=== PATIENT | female | born 1980 | race American Indian/Alaskan Native ===

== ENCOUNTER 2017-01-20 12:15 | Emergency (ER) | payer MEDICAID ==
[2017-01-20 15:03] LABS: Bacteria,Urine 1+ /HPF (Negative); Bilirubin,Urine NEG (Negative); Blood,Urine SM (Negative); Ketones,Urine NEG (Negative); Leukocyte Esterase,Urine LG (Negative); Mucus,Urine FEW /HPF; Nitrite,Urine NEG (Negative); Protein,Urine <15 mg/dL mg/dL (Negative); Urobilinogen,Urine < 2.0 mg/dL (<2.0)
[2017-01-20 15:43] VITALS: BP 129/85
[2017-01-20] MEDS ORDERED: TORADOL IV ONE (16:20)
[2017-01-20] MEDS ORDERED: ZOFRAN IV ONE (16:20)
[2017-01-20] MEDS ORDERED: NACL 0.9% 1000 ML 1,000 ML IV ONE (16:20)
[2017-01-20 16:49] LABS: Basophils % (Auto) 0.8 % (0.0-1.8); Hematocrit 30.8 % (30.3-42.9); Hemoglobin 10.1 gm/dl (10.1-14.3); Mean Corpuscular HGB Conc 33 % (30-34); Mean Corpuscular Hemoglobin 28 pg (28-32); Mean Corpuscular Volume 84 fl (79-97); Platelet Count 389 K/mm3 (140-440); Red Blood Count 3.66 M/mm3 (3.65-5.03); Red Cell Distribution Width 15.9 % (13.2-15.2); White Blood Count 9.6 K/mm3 (4.5-11.0)
[2017-01-20 17:07] LABS: Alanine Aminotransferase 17 units/L (7-56); Albumin 3.8 g/dL (3.9-5); Albumin/Globulin Ratio 1.4 %; Alkaline Phosphatase 51 units/L (35-129); Anion Gap 18 mmol/L; BUN/Creatinine Ratio 13.33; Bilirubin,Total 0.6 mg/dL (0.1-1.2); Blood Urea Nitrogen 8 mg/dL (7-17); Calcium 8.5 mg/dL (8.4-10.2); Carbon Dioxide 23 mmol/L (22-30); Chloride 101.6 mmol/L (98-107); Glucose 70 mg/dL (65-100); Lipase 24 units/L (13-60); Potassium 3.9 mmol/L (3.6-5.0); Sodium 139 mmol/L (137-145); Total Protein 6.5 g/dL (6.3-8.2)
--- NOTE | 2017-01-20 17:10 | Emergency Department Report ---
ED General Adult HPI - General Chief complaint: Abdominal Pain Stated complaint: FATIGUE/HERNIA PAIN Time Seen by Provider: 01/20/17 16:10 Source: patient Mode of arrival: Ambulatory Limitations: No Limitations - History of Present Illness Initial comments: 36-year-old female presents to the emergency department complaining of abdominal pain. Patient states that she has had an umbilical hernia for approximately 3 years. She began having pain at this site last night. Pain was described as burning in sensation that radiated to her lower back. She states she was able to push the hernia back in, but the pain is persisting. She is also complaining of chest tightness for approximately one week. She states she is out of her asthma medications. She is also complaining of fatigue , lightheadedness, headache, and nausea. There are no other complaints. -: Gradual, Last night Location: abdomen Radiation: back Severity scale (0 -10): 4 Quality: burning Consistency: constant Improves with: none Worsens with: none - Related Data Previous Rx's Medication Instructions Recorded Last Taken Type ALBUTEROL Inhaler [ProAir HFA 2 puff IH QID PRN #1 inhalation 01/20/17 Unknown Rx Inhaler] HYDROcodone/APAP 5-325 [Burnett 1 each PO Q6HR PRN #20 tablet 01/20/17 Unknown Rx 5/325] Promethazine [Phenergan TAB] 25 mg PO Q6HR PRN #20 tab 01/20/17 Unknown Rx Allergies Allergy/AdvReac Type Severity Reaction Status Date / Time No Known Allergies Allergy Verified 01/20/17 16:10 ED Review of Systems ROS: Stated complaint: FATIGUE/HERNIA PAIN Other details as noted in HPI Comment: All other systems reviewed and negative Constitutional: other (fatigue) Cardiovascular: chest pain (tightness), syncope (lightheadedness, no loss of consciousness) Gastrointestinal: abdominal pain, nausea Neurological: headache ED Past Medical Hx - Past Medical History Previous Medical History?: Yes Hx Asthma: Yes - Surgical History Past Surgical History?: Yes Additional Surgical History: hernia repair. tubal ligation - Family History Family history: no significant - Social History Smoking Status: Never Smoker Substance Use Type: Alcohol - Medications Home Medications: Home Medications Medication Instructions Recorded Confirmed Last Taken Type ALBUTEROL Inhaler [ProAir HFA 2 puff IH QID PRN #1 inhalation 01/20/17 Unknown Rx Inhaler] HYDROcodone/APAP 5-325 [Burnett 1 each PO Q6HR PRN #20 tablet 01/20/17 Unknown Rx 5/325] Promethazine [Phenergan TAB] 25 mg PO Q6HR PRN #20 tab 01/20/17 Unknown Rx ED Physical Exam - General Limitations: No Limitations General appearance: alert, in no apparent distress - Head Head exam: Present: atraumatic, normocephalic - Eye Eye exam: Present: normal appearance, PERRL, EOMI - ENT ENT exam: Present: normal exam, normal orophraynx, mucous membranes moist - Neck Neck exam: Present: normal inspection, full ROM. Absent: tenderness - Respiratory Respiratory exam: Present: normal lung sounds bilaterally. Absent: respiratory distress - Cardiovascular Cardiovascular Exam: Present: regular rate, normal rhythm, normal heart sounds - GI/Abdominal GI/Abdominal exam: Present: soft, normal bowel sounds, hernia (ventral hernia noted, easily reducible. There is no umbilical hernia present.). Absent: distended, tenderness - Extremities Exam Extremities exam: Present: normal inspection, full ROM. Absent: tenderness - Back Exam Back exam: Present: normal inspection, full ROM. Absent: tenderness - Neurological Exam Neurological exam: Present: alert, oriented X3. Absent: motor sensory deficit - Skin Skin exam: Present: warm, dry, intact ED Course Vital Signs 01/20/17 01/20/17 13:10 15:42 Temperature 97.9 F Pulse Rate 74 74 Respiratory 18 16 Rate Blood Pressure 128/90 Blood Pressure 129/85 [Left] O2 Sat by Pulse 100 100 Oximetry ED Medical Decision Making - Lab Data Result diagrams: 01/20/17 16:38 01/20/17 16:38 - Medical Decision Making Lab results reviewed and discussed with the patient. Patient reports her pain is improved with medication. Patient will be discharged home at this time with surgical referral. Also providing the patient with a prescription for her albuterol inhaler. - Differential Diagnosis ventral hernia, strangulated hernia, anemia, electrolyte abnormality Critical care attestation.: If time is entered above; I have spent that time in minutes in the direct care of this critically ill patient, excluding procedure time. ED Disposition Clinical Impression: Ventral hernia without obstruction or gangrene Disposition: DISCHARGED TO HOME OR SELFCARE Is pt being admited?: No Condition: Stable Instructions: Ventral Hernia (ED) Prescriptions: ALBUTEROL Inhaler [ProAir HFA Inhaler] 2 puff IH QID PRN #1 inhalation PRN Reason: Shortness Of Breath HYDROcodone/APAP 5-325 [Burnett 5/325] 1 each PO Q6HR PRN #20 tablet PRN Reason: Pain Promethazine [Phenergan TAB] 25 mg PO Q6HR PRN #20 tab PRN Reason: Nausea Referrals: AMRITA AYALA MD [Staff Physician] - 3-5 Days Time of Disposition: 17:17
[2017-01-20 17:14] LABS: Bilirubin,Direct < 0.2 mg/dL (0-0.2); Bilirubin,Indirect 0.4 mg/dL
== END 2017-01-20 17:35 | disposition home or self-care (01) ==
LOC: ED 12:15
DX: K43.9 Ventral hernia without obstruction or gangrene (principal); J45.909 Unspecified asthma, uncomplicated; Z98.51 Tubal ligation status; Z98.890 Other specified postprocedural states
CPT/HCPCS: 36415; 80048; 80074; 81001; 81025; 83690; 85025; 96361; 96374; 96375; 99283; J1885; J2405; J7030

== ENCOUNTER 2017-04-13 09:27 | Emergency (ER) | payer MEDICAID ==
[2017-04-13 10:08] LABS: Basophils % (Auto) 0.5 % (0.0-1.8); Eosinophils % (Auto) 1.3 % (0.0-4.3); Hematocrit 29.4 % (30.3-42.9); Hemoglobin 9.5 gm/dl (10.1-14.3); Mean Corpuscular HGB Conc 32 % (30-34); Mean Corpuscular Hemoglobin 27 pg (28-32); Mean Corpuscular Volume 82 fl (79-97); Platelet Count 405 K/mm3 (140-440); Red Blood Count 3.57 M/mm3 (3.65-5.03); Red Cell Distribution Width 16.9 % (13.2-15.2); White Blood Count 9.7 K/mm3 (4.5-11.0)
[2017-04-13 10:23] LABS: Alanine Aminotransferase 12 units/L (7-56); Albumin 3.8 g/dL (3.9-5); Albumin/Globulin Ratio 1.3 %; Alkaline Phosphatase 56 units/L (35-129); Anion Gap 17 mmol/L; Blood Urea Nitrogen 6 mg/dL (7-17); Calcium 8.6 mg/dL (8.4-10.2); Carbon Dioxide 25 mmol/L (22-30); Chloride 100.5 mmol/L (98-107); Glucose 74 mg/dL (65-100); Lipase 17 units/L (13-60); Potassium 3.6 mmol/L (3.6-5.0); Sodium 139 mmol/L (137-145); Total Protein 6.7 g/dL (6.3-8.2)
[2017-04-13 10:45] LABS: Bacteria,Urine 4+ /HPF (Negative); Bilirubin,Urine NEG (Negative); Blood,Urine SM (Negative); Ketones,Urine TR mg/dL (Negative); Leukocyte Esterase,Urine LG (Negative); Mucus,Urine 3+ /HPF; Nitrite,Urine POS (Negative); Urobilinogen,Urine < 2.0 mg/dL (<2.0)
[2017-04-13 10:46] LABS: WBC,Urine > 182.0 /HPF (0.0-6.0)
--- NOTE | 2017-04-13 16:43 | Emergency Department Report ---
ED Abdominal Pain HPI - General Chief Complaint: Abdominal Pain Stated Complaint: POSS UTI/ABD PAIN Time Seen by Provider: 04/13/17 16:33 Source: patient, RN notes reviewed Mode of arrival: Ambulatory Limitations: No Limitations - History of Present Illness Initial Comments: 36-year-old female presents to the emergency department complaining of abdominal pain. Patient reports aching, upper abdominal pain for the past 3 days. Pain is intermittent and does not radiate. She also reports the onset of painful urination and vaginal spotting beginning last night. She states that she has the sensation that she still needs to urinate after completing urination. There has been no fever. She denies vaginal discharge or diarrhea. There are no other complaints. MD Complaint: abdominal pain -: Gradual, days(s) (3) Location: epigastric Radiation: none Migration to: no migration Severity: mild Severity scale (0 -10): 2 Quality: aching Consistency: intermittent Improves With: nothing Worsens With: nothing Associated Symptoms: dysuria - Related Data Previous Rx's Medication Instructions Recorded Last Taken Type Famotidine [Pepcid] 20 mg PO BID #30 tablet 04/13/17 Unknown Rx Nitrofurantoin Wayne/M-Cryst 100 mg PO Q12HR #14 capsule 04/13/17 Unknown Rx [Macrobid CAP] Allergies Allergy/AdvReac Type Severity Reaction Status Date / Time No Known Allergies Allergy Verified 01/20/17 16:10 ED Review of Systems ROS: Stated complaint: POSS UTI/ABD PAIN Other details as noted in HPI Comment: All other systems reviewed and negative Gastrointestinal: abdominal pain Genitourinary: urgency, dysuria ED Past Medical Hx - Past Medical History Previous Medical History?: Yes Hx Asthma: Yes - Surgical History Past Surgical History?: Yes Additional Surgical History: hernia repair. tubal ligation - Family History Family history: no significant - Social History Smoking Status: Current Some Day Smoker Substance Use Type: None - Medications Home Medications: Home Medications Medication Instructions Recorded Confirmed Last Taken Type Famotidine [Pepcid] 20 mg PO BID #30 tablet 04/13/17 Unknown Rx Nitrofurantoin Wayne/M-Cryst 100 mg PO Q12HR #14 capsule 04/13/17 Unknown Rx [Macrobid CAP] ED Physical Exam - General Limitations: No Limitations General appearance: alert, in no apparent distress - Head Head exam: Present: atraumatic, normocephalic - Eye Eye exam: Present: normal appearance, PERRL, EOMI - ENT ENT exam: Present: normal exam, normal orophraynx, mucous membranes moist - Neck Neck exam: Present: normal inspection, full ROM. Absent: tenderness - Respiratory Respiratory exam: Present: normal lung sounds bilaterally. Absent: respiratory distress - Cardiovascular Cardiovascular Exam: Present: regular rate, normal rhythm, normal heart sounds - GI/Abdominal GI/Abdominal exam: Present: soft, tenderness (mild epigastric tenderness to palpation), normal bowel sounds. Absent: distended, guarding, rebound - Extremities Exam Extremities exam: Present: normal inspection, full ROM. Absent: tenderness - Back Exam Back exam: Present: normal inspection, full ROM. Absent: tenderness - Neurological Exam Neurological exam: Present: alert, oriented X3. Absent: motor sensory deficit - Skin Skin exam: Present: warm, dry, intact ED Course Vital Signs 04/13/17 09:32 Temperature 98.4 F Pulse Rate 86 Respiratory 18 Rate Blood Pressure 133/86 O2 Sat by Pulse 100 Oximetry ED Medical Decision Making - Lab Data Result diagrams: 04/13/17 09:46 04/13/17 09:46 - Medical Decision Making Lab results reviewed and discussed with the patient. Patient will be discharged home at this time to follow up with her primary care physician. Patient reports a history of umbilical hernia that she states was supposed to have been repaired. She is requesting referral for surgery to reassess this. - Differential Diagnosis gastritis, PUD, pancreatitis, UTI Critical care attestation.: If time is entered above; I have spent that time in minutes in the direct care of this critically ill patient, excluding procedure time. ED Disposition Clinical Impression: Acute gastritis without hemorrhage Qualifiers: Gastritis type: unspecified gastritis Qualified Code(s): K29.00 - Acute gastritis without bleeding UTI (urinary tract infection) Qualifiers: Urinary tract infection type: acute cystitis Hematuria presence: without hematuria Qualified Code(s): N30.00 - Acute cystitis without hematuria Disposition: DISCHARGED TO HOME OR SELFCARE Is pt being admited?: No Condition: Stable Instructions: Abdominal Pain (ED) Prescriptions: Famotidine [Pepcid] 20 mg PO BID #30 tablet Nitrofurantoin Wayne/M-Cryst [Macrobid CAP] 100 mg PO Q12HR #14 capsule Referrals: PRIMARY CARE, [Primary Care Provider] - 3-5 Days Time of Disposition: 16:45
[2017-04-13 17:04] VITALS: BP 126/84
== END 2017-04-13 17:30 | disposition home or self-care (01) ==
LOC: ED 09:27
DX: K29.00 Acute gastritis without bleeding (principal); N30.00 Acute cystitis without hematuria; J45.909 Unspecified asthma, uncomplicated; F17.200 Nicotine dependence, unspecified, uncomplicated; Z98.51 Tubal ligation status
CPT/HCPCS: 36415; 80053; 81001; 81025; 83690; 85025; 99283

== ENCOUNTER 2017-04-15 04:55 | Emergency (ER) | payer MEDICAID ==
[2017-04-15 06:11] LABS: Basophils % (Auto) 0.6 % (0.0-1.8); Hematocrit 31.8 % (30.3-42.9); Hemoglobin 10.3 gm/dl (10.1-14.3); Mean Corpuscular HGB Conc 32 % (30-34); Mean Corpuscular Hemoglobin 26 pg (28-32); Mean Corpuscular Volume 81 fl (79-97); Platelet Count 423 K/mm3 (140-440); Red Blood Count 3.93 M/mm3 (3.65-5.03); Red Cell Distribution Width 16.6 % (13.2-15.2); White Blood Count 7.9 K/mm3 (4.5-11.0)
[2017-04-15 06:44] LABS: Alanine Aminotransferase 11 units/L (7-56); Albumin 3.8 g/dL (3.9-5); Albumin/Globulin Ratio 1.2 %; Alkaline Phosphatase 55 units/L (35-129); Anion Gap 16 mmol/L; BUN/Creatinine Ratio 11.66; Blood Urea Nitrogen 7 mg/dL (7-17); Carbon Dioxide 26 mmol/L (22-30); Chloride 104.2 mmol/L (98-107); Glucose 99 mg/dL (65-100); Lipase 14 units/L (13-60); Potassium 3.7 mmol/L (3.6-5.0); Sodium 142 mmol/L (137-145)
[2017-04-15 07:15] LABS: Bacteria,Urine 2+ /HPF (Negative); Bilirubin,Urine NEG (Negative); Blood,Urine NEG (Negative); Ketones,Urine NEG (Negative); Leukocyte Esterase,Urine LG (Negative); Mucus,Urine 3+ /HPF; Nitrite,Urine POS (Negative)
[2017-04-15 07:23] LABS: WBC,Urine > 182.0 /HPF (0.0-6.0)
--- NOTE | 2017-04-15 12:45 | Emergency Department Report ---
ED Abdominal Pain HPI - General Chief Complaint: Abdominal Pain Stated Complaint: SEVERE STOMACH PAINS Time Seen by Provider: 04/15/17 12:41 Source: patient Mode of arrival: Ambulatory Limitations: No Limitations - History of Present Illness MD Complaint: abdominal pain -: Gradual Location: diffuse Radiation: none Migration to: periumbilical Severity scale (0 -10): 6 Quality: cramping Consistency: intermittent Improves With: nothing Worsens With: nothing Associated Symptoms: nausea. denies: vomiting, diarrhea, chills, constipation, dysuria, hematemesis, melena, hematuria - Related Data Previous Rx's Medication Instructions Recorded Last Taken Type Diclofenac Sodium 75 mg PO BID #14 tablet. 04/15/17 Unknown Rx Sulfamethoxazole/Trimethoprim 1 tab PO BID #14 tab 04/15/17 Unknown Rx [Bactrim 400-80 mg] Allergies Allergy/AdvReac Type Severity Reaction Status Date / Time No Known Allergies Allergy Verified 01/20/17 16:10 ED Review of Systems ROS: Stated complaint: SEVERE STOMACH PAINS Other details as noted in HPI Comment: All other systems reviewed and negative ED Past Medical Hx - Past Medical History Previous Medical History?: Yes Hx Asthma: Yes - Surgical History Past Surgical History?: Yes Additional Surgical History: hernia repair. tubal ligation - Social History Smoking Status: Current Every Day Smoker Substance Use Type: Alcohol - Medications Home Medications: Home Medications Medication Instructions Recorded Confirmed Last Taken Type Diclofenac Sodium 75 mg PO BID #14 tablet. 04/15/17 Unknown Rx Sulfamethoxazole/Trimethoprim 1 tab PO BID #14 tab 04/15/17 Unknown Rx [Bactrim 400-80 mg] ED Physical Exam - General Limitations: No Limitations General appearance: alert, in no apparent distress - Head Head exam: Present: atraumatic, normocephalic - Eye Eye exam: Present: normal appearance - ENT ENT exam: Present: mucous membranes moist - Neck Neck exam: Present: normal inspection - Respiratory Respiratory exam: Present: normal lung sounds bilaterally. Absent: respiratory distress - Cardiovascular Cardiovascular Exam: Present: regular rate, normal rhythm. Absent: systolic murmur, diastolic murmur, rubs, gallop - GI/Abdominal GI/Abdominal exam: Present: soft, tenderness, normal bowel sounds. Absent: distended, guarding, rebound - Extremities Exam Extremities exam: Present: normal inspection - Back Exam Back exam: Present: normal inspection - Neurological Exam Neurological exam: Present: alert, oriented X3 - Psychiatric Psychiatric exam: Present: normal affect, normal mood - Skin Skin exam: Present: warm, dry, intact, normal color. Absent: rash ED Course Vital Signs 04/15/17 04/15/17 04/15/17 05:07 12:27 12:48 Temperature 99 F Pulse Rate 81 66 Respiratory 18 18 Rate Blood Pressure Blood Pressure 135/92 127/89 [Right] O2 Sat by Pulse 100 100 100 Oximetry 04/15/17 04/15/17 04/15/17 12:49 13:00 13:46 Temperature Pulse Rate Respiratory 18 18 Rate Blood Pressure 126/84 Blood Pressure [Right] O2 Sat by Pulse 98 Oximetry 04/15/17 13:47 Temperature Pulse Rate Respiratory 18 Rate Blood Pressure Blood Pressure [Right] O2 Sat by Pulse Oximetry ED Medical Decision Making - Lab Data Result diagrams: 04/15/17 14:15 04/15/17 14:15 - Radiology Data Radiology results: report reviewed, image reviewed - Medical Decision Making patient doing well, pain is controlled, abd ct with ventral hernia non incarcerated , lasb negativ e, will dc with follow up with surgery. Critical care attestation.: If time is entered above; I have spent that time in minutes in the direct care of this critically ill patient, excluding procedure time. ED Disposition Clinical Impression: Acute gastritis without hemorrhage, Abdominal pain, UTI (urinary tract infection) Disposition: DISCHARGED TO HOME OR SELFCARE Is pt being admited?: No Does the pt Need Aspirin: No Condition: Good Instructions: Abdominal Pain (ED) Prescriptions: Diclofenac Sodium 75 mg PO BID #14 tablet. Sulfamethoxazole/Trimethoprim [Bactrim 400-80 mg] 1 tab PO BID #14 tab Referrals: PRIMARY CARE, [Primary Care Provider] - 3-5 Days Time of Disposition: 15:42
[2017-04-15] MEDS ORDERED: TORADOL IV ONE (13:17)
[2017-04-15] MEDS ORDERED: MORPHINE IV ONE (13:17)
[2017-04-15] MEDS ORDERED: NACL 0.9% 1000 ML 1,000 ML IV ONE (13:17)
[2017-04-15] MEDS ORDERED: ZOFRAN IV ONE (13:17)
[2017-04-15] MEDS ORDERED: XYLOCAINE 1% MPF 5 mL INFILTRATI ONE (13:47)
[2017-04-15] MEDS ORDERED: ROCEPHIN/NS 1 GM/50 ML 1 GM/50 ML BAG IV ONE (14:00)
[2017-04-15] MEDS ORDERED: ROCEPHIN 1,000 MG in NACL 0.9% 50 ML IV ONE (14:00)
[2017-04-15 14:50] LABS: Basophils % (Auto) 0.6 % (0.0-1.8); Hematocrit 27.6 % (30.3-42.9); Hemoglobin 8.9 gm/dl (10.1-14.3); Mean Corpuscular HGB Conc 32 % (30-34); Mean Corpuscular Hemoglobin 26 pg (28-32); Mean Corpuscular Volume 82 fl (79-97); Platelet Count 366 K/mm3 (140-440); Red Blood Count 3.36 M/mm3 (3.65-5.03); Red Cell Distribution Width 16.2 % (13.2-15.2)
[2017-04-15 15:08] LABS: Anion Gap 15 mmol/L; Blood Urea Nitrogen 5 mg/dL (7-17); Carbon Dioxide 23 mmol/L (22-30); Chloride 103.4 mmol/L (98-107); Glucose 82 mg/dL (65-100); Lipase 10 units/L (13-60); Potassium 3.8 mmol/L (3.6-5.0); Sodium 138 mmol/L (137-145)
--- NOTE | 2017-04-15 15:27 | Cat Scan Report ---
CT ABDOMEN AND PELVIS WITH CONTRAST INDICATION: Abdominal pain. COMPARISON: 01/31/2017. FINDINGS: Abdomen and pelvis CT performed following intravenous administration of 100 cc of Omnipaque 300. LUNG BASES: Borderline cardiomegaly. ABDOMEN: Right hepatic lobe enlarged to approximately 21.5 cm in midclavicular length with its tip again nearing the right iliac crest. Otherwise unremarkable liver, spleen, gallbladder, pancreas, adrenals, nonaneurysmal abdominal aorta, IVC and kidneys. No ascites or size significant adenopathy. Nonopacified GI tract evaluation limited, though grossly nonobstructive. Normal appendix. Mild ascending and transverse colon stool. Small fat-containing umbilical hernia with a transverse neck of 8 mm, axial image 183, series 2. Additional supraumbilical midline hernias also seen as on axial image 151 with a transverse neck of 1 cm and containing fat and increased fluid. An immediately more superior similar hernia containing fat and fluid also seen on axial image 142 with a transverse neck of 0.9 cm. PELVIS: Urinary bladder suboptimally distended, though suggests mild diffuse wall prominence/thickening measuring up to approximately 5 mm AP anteriorly as on axial image 301, series 2. No surrounding fat stranding. Small endometrial fluid likely physiologic as also small pelvic free fluid as on axial image 268. Adnexa/ovaries demonstrate physiologic CT appearance. Mild rectal stool. No significant adenopathy. Approximately 1.7 cm right perineal hypodense Bartholin or Lizet's duct cyst may again be noted, axial image 353, series 2 with a smaller, approximately 1 cm on the left as well, axial image 347. No acute osseous process. CONCLUSION: 1. Multiple ventral hernias again noted with at least one of them located approximately 3.5 cm above the umbilicus, now containing slightly greater hypodense fluid, as described above. 2. Hepatomegaly also again seen. 3. Few other findings, including nonspecific diffuse urinary bladder wall prominence/thickening, amongst others, as described. Please correlate. Thank you for the opportunity to participate in this patient's care.
[2017-04-15 16:22] VITALS: BP 130/81
== END 2017-04-15 16:51 | disposition home or self-care (01) ==
LOC: ED 04:55
DX: K29.00 Acute gastritis without bleeding (principal); N39.0 Urinary tract infection, site not specified; J45.909 Unspecified asthma, uncomplicated; F17.200 Nicotine dependence, unspecified, uncomplicated; Z98.51 Tubal ligation status
CPT/HCPCS: 36415; 74177; 80048; 80053; 81001; 83690; 84703; 85025; 96361; 96365; 96375; 99284; J0696; J1885; J2270; J2405; J7030; Q9967